=== PATIENT | female | born 1995 | race Two or more races ===

== ENCOUNTER 2017-02-03 23:44 | Emergency (ER) | payer BC ==
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
== END 2017-02-04 00:39 | disposition disaster alternative care site (69) ==
LOC: GACC 23:44
DX: S57.02XA Crushing injury of left elbow, initial encounter (principal); S50.02XA Contusion of left elbow, initial encounter; Z88.1 Allergy status to other antibiotic agents; V48.3XXA Unspecified car occupant injured in noncollision transport accident in nontraffic accident, initial encounter

== ENCOUNTER → 2017-02-03 | Emergency (ER) | payer BC | END | disposition disaster alternative care site (69) | LOC: GAMB 23:23 | DX: S49.92XA Unspecified injury of left shoulder and upper arm, initial encounter (principal); M79.622 Pain in left upper arm; X58.XXXA Exposure to other specified factors, initial encounter ==